=== PATIENT | female | born 1975 | race Caucasian/White ===

== ENCOUNTER → 2017-03-26 | Outpatient (CLI) | payer OTHER ==
[~2017-03-26] MED LIST: AMITIZA24 MICROGR PO; ATORVASTATIN CA10 MG PO; BACLOFEN20 MG PO; CELEXA10 MG PO; CLONAZEPAM1 MG PO; CYCLOBENZAPRINE10 MG PO; DIAZEPAM5 MG PO; DURAGESIC25 MCG TD; ENDOCET 7.5-321 EACH PO; ESTRADIOL2 MG PO; FENTANYL1 EAC5 TD; FLEXERIL10 MG PO; IBUPROFEN800 MG PO; LIDODERM 5% P1 PATCH TD; MIRTAZAPINE15 MG PO; NASACORT10.8 ML BOTH NARES; NEURONTIN300 MG PO; NICODERM CQ1 EAC1 TD; NOHOMEMEDS; OXYCODONE-APAP1 EAC6 PO; TOPIRAMATE50 MG PO; VALIUM10 MG PO
== END | disposition home or self-care (01) ==
LOC: CDC 10:01
DX: Z01.810 Encounter for preprocedural cardiovascular examination (principal); G56.02 Carpal tunnel syndrome, left upper limb; G56.22 Lesion of ulnar nerve, left upper limb; R94.31 Abnormal electrocardiogram [ECG] [EKG]
CPT/HCPCS: 93000